=== PATIENT | male | born 1985 | race Caucasian/White ===

== ENCOUNTER → 2023-10-09 | Outpatient (CLI) | payer BC ==
--- NOTE | 2023-10-09 11:37 | XR ---
EXAMINATION TYPE: XR chest 2V DATE OF EXAM: 10/09/2023 COMPARISON: 12/14/2012 HISTORY: Chest pain TECHNIQUE: Frontal and lateral views of the chest are obtained. FINDINGS: There is no focal air space opacity. No evidence for pneumothorax. No pleural effusion. The cardiac silhouette size is within normal limits. The osseous structures are grossly intact. IMPRESSION: 1. No acute cardiopulmonary process.
== END | disposition home or self-care (01) ==
LOC: RADXRMAIN 10:22
PROVIDERS: ATTEND Family Medicine
DX: R05.9 Cough, unspecified (principal); R07.9 Chest pain, unspecified
CPT/HCPCS: 71046

== ENCOUNTER → 2023-11-06 | Outpatient (CLI) | payer BC ==
--- NOTE | 2023-11-06 07:37 | US ---
EXAMINATION TYPE: US gallbladder DATE OF EXAM: 11/06/2023 COMPARISON: US - 12/19/2012 CLINICAL INDICATION: Male, 38 years old with history of K81.9 CHOLECYSTITIS, UNSPECIFIED; Intermitten t Epigastric pain with nausea and diarrhea X 1 month. Hx HTN TECHNIQUE: Multiple sonographic images of the right upper quadrant are obtained. FINDINGS: EXAM MEASUREMENTS: Liver Length: 17.7 cm Gallbladder Wall: 0.3 cm CBD: 0.4 cm Right Kidney: 12.2 x 6.7 x 6.0 cm KILN FURNITURE CASTER NOTES: Pancreas: Tail obscured by overlying bowel gas Liver: Increased attenuation; Heterogenous - focal fatty sparring adjacent to Gallbladder. Simple cy st left liver lobe = 1.4 x 0.8 x 1.7 cm Gallbladder: wnl Evidence for sonographic Almanza's sign: No CBD: wnl Right Kidney: wnl IMPRESSION: 1. Hepatic cyst. 2. Hepatomegaly with mild fatty infiltration.
== END | disposition home or self-care (01) ==
LOC: RADUSWWP 07:06
PROVIDERS: ATTEND Family Medicine
DX: K76.0 Fatty (change of) liver, not elsewhere classified (principal); K76.89 Other specified diseases of liver; K81.9 Cholecystitis, unspecified; R16.0 Hepatomegaly, not elsewhere classified
CPT/HCPCS: 76705